=== PATIENT | female | born 1995 | race Caucasian/White ===

== ENCOUNTER 2018-09-16 05:32 | Emergency (ER) | payer MEDICAID, OTHER ==
[2018-09-16] MEDS ORDERED: Albuterol/Ipratropium Neb 3 ML AERS HHN ONE ×2 (05:36→05:38)
--- NOTE | 2018-09-16 05:42 | ED Physician Chart ---
ED Chief Complaint/HPI - Patient Information Date Seen:: 09/16/18 Time Seen:: 05:39 Chief Complaint:: Wheezing and cough History of Present Illness:: 23 yo female with history of asthma using albuterol inhaler once every other day , had wheezing and cough for one day. 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 Pt felt panic attack and called 911. Pt was brought from home to ER. Albuterol neb was started on route. Vital signs were stable on arrival. Pt coughed out yellow sputum at ER. ED Review of Systems - Review of Systems General/Constitutional: No fever Skin: No rash Head: Headache Eyes: No pain ENT: No nasal drainage Neck: No neck pain Cardio Vascular: Chest pain Pulmonary: SOB, No cough, No sputum, No wheezing GI: No nausea, No vomiting Musculoskeletal: No bone or joint pain Psychiatric: No prior psych history Neurological: No focal symptoms ED Past Medical History - Past Medical History Past Medical History: Asthma/COPD, Other () Social History: Smoker (formerly smoked marijuana), Alcohol (occasionally), Illicit Drug Use (Marijuana) Surgical History: None Psychiatricy History: Other (Anxiety treated lorazepam prn, last dose 3 months ago) Family Medical History - Family Member Mother History Unknown: Yes ED Physical Exam - Physical Examination General/Constitutional: Awake, Alert Head: Atraumatic Eyes: PERRL Skin: No skin lesions ENMT: Nasal exam nl Neck: No nuchal rigidity Other Respiratory comments:: Expirational wheeze Cardio Vascular: RRR, No murmur, gallop, rubs, NL S1 S2 GI: No tenderness/rebounding/guarding Extremities: normal strength in all extremities Neuro/Psych: Alert/oriented ED Labs/Radiology/EKG Results - Lab Results Results: Laboratory Last Values WBC 7.2 Th/cmm (4.8-10.8) 09/16/18 05:45 RBC 4.42 Mil/cmm (3.80-5.10) 09/16/18 05:45 Hgb 14.0 gm/dL (12-16) 09/16/18 05:45 Hct 40.7 % (41.0-60) L 09/16/18 05:45 MCV 92.1 fl (81-100) 09/16/18 05:45 MCH 31.5 pg (27.0-31.0) H 09/16/18 05:45 MCHC Differential 34.3 pg (28.0-36.0) 09/16/18 05:45 RDW 12.1 % (11.5-20.0) 09/16/18 05:45 Plt Count 256 Th/cmm (150-400) 09/16/18 05:45 MPV 7.1 fl 09/16/18 05:45 Add Manual Diff YES 09/16/18 05:45 Sodium 138 mEq/L (136-145) 09/16/18 05:45 Potassium 3.4 mEq/L (3.5-5.1) L 09/16/18 05:45 Chloride 106 mEq/L (98-107) 09/16/18 05:45 Carbon Dioxide 22.5 mEq/L (21.0-31.0) 09/16/18 05:45 Anion Gap 12.9 (7.0-16.0) 09/16/18 05:45 BUN 10 mg/dL (7-25) 09/16/18 05:45 Creatinine 0.9 mg/dL (0.6-1.2) 09/16/18 05:45 Est GFR ( Amer) > 60.0 ml/min (>90) 09/16/18 05:45 Est GFR (Non-Af Amer) > 60.0 ml/min 09/16/18 05:45 BUN/Creatinine Ratio 11.1 09/16/18 05:45 Glucose 109 mg/dL (70-105) H 09/16/18 05:45 Calcium 8.4 mg/dL (8.6-10.3) L 09/16/18 05:45 Total Bilirubin 0.2 mg/dL (0.3-1.0) L 09/16/18 05:45 AST 16 U/L (13-39) 09/16/18 05:45 ALT 7 U/L (7-52) 09/16/18 05:45 Alkaline Phosphatase 41 U/L (34-104) 09/16/18 05:45 Total Protein 6.7 gm/dL (6.0-8.3) 09/16/18 05:45 Albumin 3.7 gm/dL (3.7-5.3) 09/16/18 05:45 Globulin 3.0 gm/dL 09/16/18 05:45 Albumin/Globulin Ratio 1.2 (1.0-1.8) 09/16/18 05:45 Urine Color YELLOW 09/16/18 06:06 Urine Clarity HAZY (CLEAR) 09/16/18 06:06 Urine pH 6.0 (4.6 - 8.0) 09/16/18 06:06 Ur Specific [place] 1.025 (1.005-1.030) 09/16/18 06:06 Urine Protein NEGATIVE mg/dL (NEGATIVE) 09/16/18 06:06 Urine Glucose (UA) NEGATIVE mg/dL (NEGATIVE) 09/16/18 06:06 Urine Ketones NEGATIVE mg/dL (NEGATIVE) 09/16/18 06:06 Urine Blood NEGATIVE (NEGATIVE) 09/16/18 06:06 Urine Nitrate POSITIVE (NEGATIVE) H 09/16/18 06:06 Urine Bilirubin NEGATIVE (NEGATIVE) 09/16/18 06:06 Urine Urobilinogen 0.2 E.U./dL (0.2 - 1.0) 09/16/18 06:06 Ur Leukocyte Esterase NEGATIVE (NEGATIVE) 09/16/18 06:06 - Radiology Results Results: CXR: no focal consolidation - EKG Interpretations EKG Time:: 05:48 Rate & Rhythm: 104, sinus tachycardia Comments:: Borderline T wave abnormalities ED Assessment - Assessment General Assessment: Asthma exacerbation Bronchitis Dehydration Hypokalemia, mild Assessment/Comments:: CBC, CMP, UA, hCG CXR, EKG DuoNeb Solu-Medrol 125 mg IV Azithromycin 500 mg IV NS 1L IV bolus x 1 ED Septic Shock - . Is Septic Shock (SBP<90, OR Lactate>4 mmol\L) present?: No ED Reassessment (Disposition) - Reassessment Reassessment Condition:: Improved - Aftercare/Follow up Instructions Notes:: F/u PCP or return to ER if symptoms worsen Medication Prescribed:: Azithromycin 250mg PO qd x 4 days, #4 - Patient Disposition Discharge/Transfer:: Home
[2018-09-16 05:52] LABS: HEMATOCRIT 40.7 % (41.0-60); MEAN CELL VOLUME 92.1 fl (81-100); MEAN CORPUSCULAR HEMOGLOBIN 31.5 pg (27.0-31.0); MEAN CORPUSCULAR HGB CONC 34.3 pg (28.0-36.0); MEAN PLATELET VOLUME 7.1 fl; PLATELET COUNT 256 Th/cmm (150-400); RED BLOOD COUNT 4.42 Mil/cmm (3.80-5.10); RED CELL DISTRIBUTION WIDTH 12.1 % (11.5-20.0); WHITE BLOOD COUNT 7.2 Th/cmm (4.8-10.8)
[2018-09-16] MEDS ORDERED: Azithromycin 500 MG in Sodium Chloride 0.9% 250 ML IV ONE (06:05)
[2018-09-16 06:08] LABS: ALB/GLOB RATIO 1.2 (1.0-1.8); ALBUMIN 3.7 gm/dL (3.7-5.3); ALKALINE PHOSPHATASE 41 U/L (34-104); ANION GAP 12.9 (7.0-16.0); BILIRUBIN,TOTAL 0.2 mg/dL (0.3-1.0); BUN - UREA NITROGEN 10 mg/dL (7-25); CALCIUM SERUM 8.4 mg/dL (8.6-10.3); CARBON DIOXIDE 22.5 mEq/L (21.0-31.0); CHLORIDE 106 mEq/L (98-107); CREATININE - SERUM 0.9 mg/dL (0.6-1.2); GFR AFRICAN-AMERICAN > 60.0 ml/min (>90); GFR NON AFRICAN-AMERICAN > 60.0 ml/min; GLUCOSE 109 mg/dL (70-105); POTASSIUM SERUM 3.4 mEq/L (3.5-5.1); SGOT 16 U/L (13-39); SGPT/ALT 7 U/L (7-52); SODIUM SERUM 138 mEq/L (136-145); TOTAL PROTEIN,SERUM 6.7 gm/dL (6.0-8.3)
[2018-09-16] MEDS ORDERED: Potassium Chloride 20 mEq ER Tab PO ONE ×2 (06:11→06:18)
[2018-09-16] MEDS ORDERED: Sodium Chloride 0.9% 1,000 ML IV ONE (06:13)
[2018-09-16 06:16] LABS: URINE SOURCE MIDSTREAM
[2018-09-16 06:27] LABS: URINE BILIRUBIN NEGATIVE (NEGATIVE); URINE BLOOD NEGATIVE (NEGATIVE); URINE GLUCOSE (UA) NEGATIVE (NEGATIVE); URINE KETONE NEGATIVE (NEGATIVE); URINE LEUKOCYTE ESTERASE NEGATIVE (NEGATIVE); URINE MICROSCOPIC INDICATED? YES; URINE NITRATE POSITIVE (NEGATIVE); URINE PROTEIN NEGATIVE (NEGATIVE); URINE UROBILINOGEN 0.2 E.U./dL (0.2 - 1.0)
[2018-09-16 06:30] LABS: URINE CLARITY HAZY (CLEAR); URINE COLOR YELLOW
[2018-09-16 06:40] LABS: URINE BACTERIA MANY /hpf (NONE SEEN); URINE EPITHELIAL CELLS FEW /lpf (FEW); URINE RBC 0-2 /hpf (0-5); URINE WBC 0-2 /hpf (0-5)
[2018-09-16 07:10] LABS: BAND NEUTROPHILE 0 % (0-10); LYMPHOCYTE 50 % (20-50); NEUTROPHILS 40 % (40-80)
[2018-09-16 07:11] LABS: EOSINOPHIL 5 % (0-5); MONOCYTE 5 % (2-10)
--- NOTE | 2018-09-16 09:09 | Diagnostic Imaging Report ---
Portable chest x-ray Time: 0 632 History: Shortness of breath Allowing for portable technique the heart size is normal. No focal pulmonary parenchymal processes. No hilar or mediastinal abnormalities. Impression: No acute abnormalities.
== END 2018-09-16 07:11 | disposition home or self-care (01) ==
LOC: ER 05:32
DX: J45.901 Unspecified asthma with (acute) exacerbation (principal); E87.6 Hypokalemia; E86.0 Dehydration; F17.200 Nicotine dependence, unspecified, uncomplicated; Z88.0 Allergy status to penicillin
CPT/HCPCS: 36415-UA; 71045-TC; 80053-TC; 81001-TC; 81025-TC; 85007-TC; 85025-TC; 87086-90; 93005; 94640; 96375; J0456; J2930; J7030